=== PATIENT | male | born 1985 | race Caucasian/White ===

== ENCOUNTER 2016-11-26 09:18 | Emergency (ER) | payer OTHER ==
[~2016-11-26] VITALS: Ht 170.2 cm; Wt 97.5 kg
--- NOTE | 2016-11-26 09:34 | NUR ---
MSE COMPLETED, PT D/C'D HOME, ACI/RX X2 GIVEN. PT AMBULATED W/O DIFF/TOOK ALL BELONGINGS.
[2016-11-26 09:35] VITALS: BP 135/55
== END 2016-11-26 09:36 | disposition home or self-care (01) ==
LOC: ER 09:18
DX: G51.0 Bell's palsy (principal); J45.909 Unspecified asthma, uncomplicated; F10.20 Alcohol dependence, uncomplicated; F17.200 Nicotine dependence, unspecified, uncomplicated; F12.10 Cannabis abuse, uncomplicated
CPT/HCPCS: 93005; 99283; A4663